=== PATIENT | male | born 1975 | race Caucasian/White ===

== ENCOUNTER 2021-06-03 22:18 | Emergency (ER) | payer OTHER ==
[2021-06-03 23:51] LABS: EOSINOPHIL 2.6 % (0-5); HCT 42.4 % (42.0-52.0); HGB 14.4 g/dl (13.2-18.0); LYMPHOCYTE 29.2 % (15-48); MCH 30.8 pg (25.0-31.0); MCV 90.6 fL (78.0-100.0); MONOCYTE 7.4 % (0-12); MPV 9.3 fL (6.0-9.5); NEUTROPHIL 59.4 % (41-80); NRBC 0; PLT 235 K/uL (150-400); RBC 4.68 M/uL (4.70-6.00); RDW 13.1 % (11.5-14.0)
[2021-06-04 00:28] LABS: ALBUMIN 3.4 g/dL (3.4-5.0); BILIRUBIN - TOTAL 0.2 mg/dL (0.2-1.0); BUN/CREAT RATIO (CALC) 12.2 RATIO; CREATININE 0.74 mg/dL (0.67-1.17); GLOBULIN (CALCULATION) 3.4 g/dL; POTASSIUM 3.7 mmol/L (3.5-5.1); TOTAL PROTEIN 6.8 g/dL (6.4-8.2)
[2021-06-04] MEDS ORDERED: ONDANSETRON ODT4 MG PO (01:06)
== END 2021-06-04 01:25 | disposition home or self-care (01) ==
LOC: FER 22:18
PROVIDERS: Internal Medicine
DX: K52.9 Noninfective gastroenteritis and colitis, unspecified (principal)
CPT/HCPCS: 36415; 80053; 83690; 85025; J7120